=== PATIENT | female | born 1930 | race Caucasian/White ===

== ENCOUNTER 2016-05-24 09:45 | Outpatient (CLI) | payer MEDICARE, OTHER ==
[~2016-05-24] VITALS: Ht 165.1 cm; Wt 84.0 kg
[2016-05-24 09:53] VITALS: BP 165/80
[2016-05-24] MEDS ORDERED: MULT-1029 PO (10:00)
[2016-05-24] MEDS ORDERED: CALC1TAB29 PO (10:00)
[2016-05-24] MEDS ORDERED: BETA2500 PO (10:00)
[2016-05-24] MEDS ORDERED: TRIA1CAP4 PO (10:00)
[2016-05-24] MEDS ORDERED: VIT1CAPS44 PO (10:00)
[2016-05-24] MEDS ORDERED: LORA10TA7 PO (10:00)
[2016-05-24] MEDS ORDERED: PANT40TA3 PO (10:00)
[2016-05-24] MEDS ORDERED: LOVA10TA PO (10:00)
[2016-05-24 10:55] LABS: BASOPHILS % (AUTO) 0 % (0-10); EOSINOPHILS % (AUTO) 1 % (0-10); LYMPHOCYTES # (AUTO) 2.1 X 10^3 (1.0-4.0); LYMPHOCYTES % (AUTO) 28 % (12-44); MEAN CORPUSCULAR HEMOGLOBIN 31 PG (25-34); MEAN CORPUSCULAR HGB CONC 33 G/DL (32-36); MEAN CORPUSCULAR VOLUME 95 FL (80-99); MEAN PLATELET VOLUME 10.4 FL (7.4-10.4); MONOCYTES # (AUTO) 0.8 X 10^3 (0.0-1.0); MONOCYTES % (AUTO) 11 % (0-12); NEUTROPHILS # (AUTO) 4.5 X 10^3 (1.8-7.8); NEUTROPHILS % (AUTO) 60 % (42-75); PLATELET COUNT 283 10^3/uL (130-400); RED BLOOD COUNT 4.18 10^6/uL (4.35-5.85); RED CELL DISTRIBUTION WIDTH 12.8 % (10.0-14.5); WHITE BLOOD COUNT 7.4 10^3/uL (4.3-11.0)
[2016-05-24 11:17] LABS: CALCIUM 9.5 MG/DL (8.5-10.1); CREATININE SERUM 1.38 MG/DL (0.60-1.30); POTASSIUM 4.1 MMOL/L (3.6-5.0)
[2016-06-01] MEDS ORDERED: OXYC-471 PO (09:28)
[2016-06-01] MEDS ORDERED: IBUP-1780 PO (09:28)
[2016-06-01] MEDS ORDERED: DOCU100C37 PO (09:28)
== END 2016-05-24 10:30 | disposition home or self-care (01) ==
LOC: PREOP 09:45
PROVIDERS: ATTEND Obstetrics & Gynecology
DX: Z01.812 Encounter for preprocedural laboratory examination (principal); Z11.2 Encounter for screening for other bacterial diseases; C54.1 Malignant neoplasm of endometrium; D64.9 Anemia, unspecified
CPT/HCPCS: 36415; 80048; 85025; 86850; 86900; 86901; 87081; 93005

== ENCOUNTER 2016-05-31 10:45 | Day surgery (SDC) | payer MEDICARE, OTHER ==
[~2016-05-31] VITALS: Ht 165.1 cm; Wt 84.0 kg
[~2016-05-31 10:45] MED LIST: BETA2500 PO; CALC1TAB29 PO; D5 LR IV SOLUTION 1,000 ML IV SCH; LORA10TA7 PO; LOVA10TA PO; MEPERIDINE (DEMEROL) INJ 100 MG/ML IM PRN; MULT-1029 PO; ONDANSETRON 4 MG/2 ML (SDV) Z0FRAN IVP PRN; PANT40TA3 PO; PATIENT MAY USE OWN MEDS, ALL MC SCH; PROMETHAZINE INJ 25 MG/ML (PHENERGAN) AMP IM PRN; TRIA1CAP4 PO; VIT1CAPS44 PO; oxyCODONE/APAP 5/325MG (PERCOCET 5) TABLET PO PRN
[2016-05-31] MEDS ORDERED: ceFAZolin 1,000 MG (ANCEF) VIAL ONE (11:06)
[2016-05-31] MEDS ORDERED: NORMAL SALINE (BAXTER MINI) 50 ML IV ONE (11:06)
[2016-05-31] MEDS ORDERED: LACTATED RINGERS 1,000 ML IV PRN (11:09)
[2016-05-31] MEDS ORDERED: ceFAZolin 1 GM/NS 50 ML IVPB IV ONE ×2 (11:15)
[2016-05-31] MEDS ORDERED: FAMOTIDINE 20MG/2ML IV (PEPCID) IV ONE ×2 (11:15)
[2016-05-31] MEDS: LACTATED RINGERS 1,000 ML IV PRN ×2 (11:19→12:54)
[2016-05-31 11:34] VITALS: BP 149/71
[2016-05-31] MEDS ORDERED: LIDOCAINE PF 2% 10 ML (XYLOCAINE) AMP ONE (11:45)
[2016-05-31] MEDS ORDERED: ROCURONIUM 50 MG/5 ML (ZEMURON) VIAL IV ONE (11:45)
[2016-05-31] MEDS ORDERED: fentaNYL INJECTION 100 MCG/2 ML AMP ONE (11:45)
[2016-05-31] MEDS ORDERED: ONDANSETRON 4 MG/2 ML (SDV) Z0FRAN ONE (11:45)
[2016-05-31] MEDS ORDERED: proPOfol 200 MG/20 ML (DIPRIVAN) VIAL IV ONE (11:45)
[2016-05-31] MEDS ORDERED: LACTATED RINGERS 2,000 ML IV ONE (11:45)
[2016-05-31] MEDS ORDERED: SEVOFLURANE (ULTANE) 15 ML INHAL SOLN ONE ×2 (11:45→13:32)
[2016-05-31] MEDS ORDERED: DEXAMETHASONE PF 10 MG/ML (DECADRON) VIAL ONE (11:45)
[2016-05-31] MEDS ORDERED: KETOROLAC 15 MG/ML VIAL IVP SCH (12:00)
[2016-05-31] MEDS ORDERED: BUP/EPI 0.5% 1:200,000 (SENSORCAINE) 30 ML VIAL ONE (12:04)
[2016-05-31] MEDS ORDERED: BUP/EPI 0.25% 1:200,000 (MARCAINE) 30 ML VIAL ONE (12:05)
[2016-05-31] MEDS ORDERED: GLYCOPYRROLATE 0.2 MG/ML (ROBINUL) 2 ML VIAL ONE (13:33)
[2016-05-31] MEDS ORDERED: ESMOLOL 100 MG/10 ML (BREVIBLOC) VIAL ONE (13:33)
[2016-05-31] MEDS ORDERED: PHENYLEPHRINE 100 MCG/ML 10 ML (ANESTHESIA) SYR ONE (13:33)
[2016-05-31] MEDS ORDERED: NEOSTIGMINE (BLOXIVERZ ) 1 MG/1ML 10 ML VIAL ONE (13:33)
[2016-05-31] MEDS ORDERED: morphine INJ 10 MG/ML 1ML (SYR OR VIAL) ONE (14:00)
[2016-05-31] MEDS ORDERED: WATER (STERILE) FOR INJECTION 0 ML ONE (14:00)
[2016-05-31] MEDS ORDERED: KETOROLAC 30 MG/ML VIAL ONE (14:00)
[2016-05-31] MEDS ORDERED: ESTROGENS CONJ IV 25 MG/5 ML (PREMARIN) VIAL ONE (14:00)
[2016-05-31] MEDS ORDERED: MEPERIDINE (DEMEROL) INJ 50 MG/ML IVP PRN (14:15)
[2016-05-31] MEDS ORDERED: ONDANSETRON 4 MG/2 ML (SDV) Z0FRAN IVP PRN (14:15)
[2016-05-31] MEDS: morphine INJ 10 MG/ML 1ML (SYR OR VIAL) IVP PRN ×2 (14:19→14:30)
[2016-05-31 15:05] VITALS: BP 104/47
[2016-05-31 16:00] VITALS: BP 109/47
[2016-05-31 19:43] VITALS: BP 123/66
[2016-05-31] MEDS ORDERED: LOVASTATIN 10 MG TAB PO SCH (21:00)
[2016-06-01 01:15] VITALS: BP 123/72
[2016-06-01 05:35] VITALS: BP 111/63
[2016-06-01] MEDS ORDERED: PANTOPRAZOLE 40 MG (PROTONIX) TAB PO SCH (07:00)
--- NOTE | 2016-06-01 08:05 | Anesthesia-General Post-Op ---
General Patient Condition Mental Status/LOC: Same as Preop Cardiovascular: Satisfactory Nausea/Vomiting: Absent Respiratory: Satisfactory Pain: Controlled Complications: Absent Post Op Complications Complications None Follow Up Care/Instructions Patient Instructions None needed. Anesthesia/Patient Condition Patient Condition Patient is doing well, no complaints, stable vital signs, no apparent adverse anesthesia problems. No complications reported per nursing. GODWIN FRANCIS CRNA Jun 01, 2016 08:04
[2016-06-01 08:15] VITALS: BP 103/56
[2016-06-01] MEDS ORDERED: TRIAMT/HCTZ 37.5-25 MG TAB PO SCH (09:00)
[2016-06-01] MEDS ORDERED: DOCUSATE SODIUM 100 MG (COLACE) CAP PO SCH (09:00)
--- NOTE | 2016-06-01 09:26 | Progress Note-Standard ---
Standard Progress Note Progress Notes/Assess & Plan Progress/Assessment & Plan this patient is without complaint. She is ambulating, voiding, tolerating by mouth well, has good pain control, denies chest pain, denies shortness of breath , denies nausea vomiting, denies headache, is requesting discharge home. Vital Signs Date Time Temp Pulse Resp B/P Pulse Ox O2 Delivery O2 Flow Rate FiO2 06/01/16 08:15 98.9 81 18 103/56 94 Room Air 06/01/16 08:15 94 06/01/16 05:35 98.6 73 18 111/63 96 Room Air 06/01/16 01:15 97.6 89 18 123/72 95 NIV/CPAP 3.00 05/31/16 19:45 98 Nasal Cannula 3.00 05/31/16 19:43 97.9 97 18 123/66 98 Nasal Cannula 3.00 05/31/16 16:00 98.0 77 18 109/47 96 Nasal Cannula 3.00 05/31/16 15:05 97.4 71 16 104/47 94 Nasal Cannula 3.00 05/31/16 11:34 97.1 89 16 149/71 96 Room Air I & O 06/01/16 07:00 Intake Total 1260 ml Output Total 1475 ml Balance -215 ml Vital signs are stable. Patient is afebrile. The abdomen is benign. Ashley show no clubbing or cyanosis. There is no Homans sign. assessment and plan postoperative day number 1 doing well. Plan is for discharge home with follow-up in clinic. Final Diagnosis endometrial cancer ISABELL GAMA MD Jun 01, 2016 9:26 am
[2016-06-01] MEDS ORDERED: OXYC-471 PO (09:28)
[2016-06-01] MEDS ORDERED: IBUP-1780 PO (09:28)
[2016-06-01] MEDS ORDERED: DOCU100C37 PO (09:28)
--- NOTE | 2016-06-01 09:30 | Discharge Instructions ---
Discharge Instructions Discharge Medications New, Converted or Re-Newed RX: RX on Chart Patient Instructions Patient Instructions: as directed Return to The Hospital For: as directed Activity & Diet Discharge Diet: No Restrictions Activity as Tolerated: No Orders-Post D/C & Referrals Follow Up Appt: return to clinic next Friday, June 05, 2016 at 930 a.m. for staple removal Call to make follow up appt. for patient in 4 weeks. Activity: Rest for 24 hours, than as tolerated. Wound Care: May remove Band-Aid tomorrow. Replace as desired. Keep incisions clean and dry. Wash daily with soap and water. Please call in RX to patient pharmacy. Diet: As tolerated-Clear Liquids only if nauseated. Tomorrow, may shower or tub bathe as desired. No driving for 24 hours, no alcoholic beverages for 24 hours, and nothing per vagina (no tampons, douching, or intercourse) for 8 weeks. Patient to return to the clinic as soon as possible for: Temperature greater than 101F, Severe Pain, Foul discharge from incision or vagina, Excessive Bleeding (more than a period). ISABELL GAMA MD Jun 01, 2016 9:30 am
[2016-06-01 10:40] VITALS: BP 103/56
[2016-06-01] MEDS ORDERED: IBUPROFEN 800 MG (MOTRIN) TAB PO SCH (12:00)
--- NOTE | 2016-06-02 12:49 | OPERATIVE REPORT ---
PROCEDURE PHYSICIAN: ISABELL GAMA DATE OF PROCEDURE: 05/31/2016 DATE OF DICTATION: 05/31/2016 PREOPERATIVE DIAGNOSIS: Endometrial cancer on endometrial biopsy. POSTOPERATIVE DIAGNOSES: 1. Endometrial cancer on endometrial biopsy. 2. Abdominal pelvic adhesions and omental nodule. OPERATIVE PROCEDURE: 1. Total laparoscopic hysterectomy with bilateral salpingo-oophorectomy. 2. Laparoscopic adhesiolysis. 3. Laparoscopic omental nodule excision. 4. Pelvic washings. OPERATIVE DESCRIPTION: With the patient in the supine position, under satisfactory general anesthesia, she was repositioned in the dorsal lithotomy position in the [facility] and prepped and draped in usual fashion for abdominal and vaginal surgery. A weighted speculum placed in posterior fornix of vagina. Cervix exposed and grasped anteriorly with single-tooth tenaculum. The uterus sounded to 7 cm with uterine sound. The cervix was then serially dilated with Jozef dilators to accommodate a REHAN 2 manipulator, which is placed using a 6 mm x 6 cm colpotomy ring and a 6 mm x 6 cm uterine probe and a 30 mm colpotomy ring. Sutures of number 1 Vicryl were placed at 3 and 9 o'clock positions to affix the cervix to the manipulator. Barron cath was placed in the urinary bladder and began draining clear yellow urine. The patient brought in low dorsal lithotomy position. A 12 mm incision was made just superior to the umbilicus and a Veress needle was placed through that incision, correct placement confirmed with the water drop test. The abdomen was insufflated with 2.4 liters of carbon dioxide and the Veress needle was removed and a 12 mm Optiview laparoscopic port placed. The abdominal wall transilluminated and 8 mm ports were placed 9 cm lateral to the umbilicus on each side. All 3 port sites were infiltrated with 0.25% Marcaine with epinephrine prior to incision. Pelvic washings were now obtained using a suction water reuse program manager in the left port with the camera through the umbilical port. The patient was in Trendelenburg and the bowel was spilled up out of the pelvis. The pelvis washings were obtained irrigating both the uterus as well as the entire pelvis, both ovaries and the pelvic brim on both sides. Those washings were captured and sent to pathology for permanent section. The da Cholo column was now advanced onto the patient and docked and then operative instruments placed right and left lateral ports and I retired to the da Cholo console. At the console, using the vessel sealer on the right and bipolar fenestrated grasper on the left, attention was first turned to some extensive mostly omental adhesions to the right lower quadrant of the abdominal wall. This is likely due to the patient's previous appendectomy. These adhesions were mostly omental and fat and filmy. The bowel was fairly well away from the attachment. The attachment of the adhesions were clamped, cauterized, and divided using the vessel sealer up against the abdominal wall with the tissue eventually freed; there was nodule of about 1 cm noted in the midst of this area. It was grasped and elevated using the vessel sealer it was dissected free and put in an Endobag and sent to pathology separately labeled omental nodule biopsy. The attention was then turned to the pelvis. The pelvis had been examined prior to initiating adhesiolysis. The ovaries were atretic. The fallopian tubes were normal. The uterus was normal. There was no overt carcinomatosis. There were no nodules consistent with any obvious omental spread of the endometrial cancer. There were no lymph nodes notable through the peritoneum on either side of the pelvis or in the cul-de-sac. The decision was made to go ahead with a simple hysterectomy with bilateral salpingo-oophorectomy in addition to the other procedures that had been performed. The right tube and ovary were grasped and elevated. The vessel sealer was used to clamped, cauterized, and divide the IP ligament and then the mesovarian, and then the round ligament, broad ligament and finally the cardinal ligament. The same procedure was performed on the left with the same results allowing for removal of the tubes and ovaries with the uterus eventually. The anterior lower uterine segment peritoneum was divided after replacing the vessel sealer with a monopolar shear. The bladder was carefully dissected down off of the lower uterine segment, exposing the colpotomy ring through the vagina. The colpotomy incision then made at the 12 o'clock position on the colpotomy ring and that incision was continued circumferentially clockwise to the 2 o'clock position then counterclockwise entirely around the cervix until the colpotomy ring was fully exposed. At this point the Endobag had been placed in the abdominal cavity and the nodule had been placed in it; that string was looped around the uterus so that when the uterus was removed the string for the bag came out and then bag was extracted through the vagina as well. All that tissue was sent to pathology, labeled appropriately. The operative instruments now were changed to a Cobra grasper on the left and a barbara cut needle boat driver on the right using V-Loc barbed sutures. The vaginal cuff was closed starting first from the right angle and continuing to just past the midpoint of the cuff and then from the left angle to the midpoint of the cuff. The peritoneum was brought back down onto the cuff with the last 2 stitches on each side. The suture was started and then continued laterally on each side, to ensure inclusion of the terminus of the uterine vessels on this side respectively. Both ureters were identified during, and throughout the process of the procedure and were seen to peristalt. They were examined again now and found to be peristalsing and were normal in appearance and caliber. The pelvis was now irrigated and examined for hemostasis. With that being complete, with no abnormal pathology, the procedure was terminated. The operative instruments were removed as were the ports. The abdomen was evacuated of insufflating gas in the process of removing the port. The ports had been removed under direct vision. No bleeding noted at any of the port sites. Sponge and needle counts were correct on completion of procedure. Estimated blood loss was minimal. The patient tolerated the procedure well and was transferred to the recovery room in stable condition after being uneventfully awakened from her general anesthesia. The patient had good urine output throughout the procedure, tolerated well. Job ID: [id number] Dictated Date: 05/31/2016 13:56:38 It Senior Analyst Date: 06/02/2016 12:34:52 / greta
== END 2016-06-01 10:40 | disposition home or self-care (01) ==
LOC: SDC 10:45 → WS 15:05 → SDC 06-01 10:40
PROVIDERS: ATTEND Obstetrics & Gynecology
DX: C54.1 Malignant neoplasm of endometrium (principal); N73.6 Female pelvic peritoneal adhesions (postinfective); K66.9 Disorder of peritoneum, unspecified
CPT/HCPCS: 94664

== ENCOUNTER 2016-06-13 08:39 | Outpatient (RCR) | payer MEDICARE, OTHER ==
[~2016-06-13 08:39] MED LIST changes: -D5 LR IV SOLUTION 1,000 ML IV SCH; +DOCU100C37 PO; +IBUP-1780 PO; -MEPERIDINE (DEMEROL) INJ 100 MG/ML IM PRN; -ONDANSETRON 4 MG/2 ML (SDV) Z0FRAN IVP PRN; +OXYC-471 PO; -PATIENT MAY USE OWN MEDS, ALL MC SCH; -PROMETHAZINE INJ 25 MG/ML (PHENERGAN) AMP IM PRN; -oxyCODONE/APAP 5/325MG (PERCOCET 5) TABLET PO PRN
[2016-06-13 09:09] LABS: BASOPHILS % (AUTO) 0 % (0-10); EOSINOPHILS # (AUTO) 0.1 10^3/uL (0.0-0.3); EOSINOPHILS % (AUTO) 1 % (0-10); LYMPHOCYTES # (AUTO) 1.9 X 10^3 (1.0-4.0); LYMPHOCYTES % (AUTO) 13 % (12-44); MEAN CORPUSCULAR HEMOGLOBIN 31 PG (25-34); MEAN CORPUSCULAR HGB CONC 33 G/DL (32-36); MEAN CORPUSCULAR VOLUME 93 FL (80-99); MEAN PLATELET VOLUME 9.9 FL (7.4-10.4); MONOCYTES # (AUTO) 1.7 X 10^3 (0.0-1.0); MONOCYTES % (AUTO) 11 % (0-12); NEUTROPHILS # (AUTO) 10.9 X 10^3 (1.8-7.8); NEUTROPHILS % (AUTO) 74 % (42-75); PLATELET COUNT 334 10^3/uL (130-400); RED BLOOD COUNT 3.76 10^6/uL (4.35-5.85); RED CELL DISTRIBUTION WIDTH 12.5 % (10.0-14.5); WHITE BLOOD COUNT 14.6 10^3/uL (4.3-11.0)
[2016-06-13 09:43] LABS: BILIRUBIN,TOTAL 0.6 MG/DL (0.1-1.0); CALCIUM 9.4 MG/DL (8.5-10.1); CREATININE SERUM 1.59 MG/DL (0.60-1.30); POTASSIUM 5.2 MMOL/L (3.6-5.0); TOTAL PROTEIN 7.4 G/DL (6.4-8.2)
[2016-06-13 09:51] LABS: BILIRUBIN,URINE NEGATIVE (NEGATIVE); KETONES,URINE NEGATIVE (NEGATIVE); LEUKOCYTE ESTERASE ,URINE 3+ (NEGATIVE); NITRITE,URINE NEGATIVE (NEGATIVE); PH,URINE 7 (5-9); PROTEIN,URINE 2+ (NEGATIVE); UROBILINOGEN,URINE NORMAL (NORMAL)
[2016-06-13 10:18] LABS: WBC,URINE 50-100 /HPF
== END 2016-09-11 | disposition home or self-care (01) ==
LOC: ONC 08:39
PROVIDERS: ATTEND Internal Medicine Hematology & Oncology
DX: C54.1 Malignant neoplasm of endometrium (principal); R30.0 Dysuria; N28.9 Disorder of kidney and ureter, unspecified; I10 Essential (primary) hypertension; K21.9 Gastro-esophageal reflux disease without esophagitis; E78.5 Hyperlipidemia, unspecified; R82.99 Other abnormal findings in urine; M19.90 Unspecified osteoarthritis, unspecified site; E66.9 Obesity, unspecified; Z68.31 Body mass index [BMI] 31.0-31.9, adult; Z90.710 Acquired absence of both cervix and uterus; Z79.899 Other long term (current) drug therapy
CPT/HCPCS: 36415; 80053; 81000; 85025; 87088; 99214

== ENCOUNTER 2016-11-07 09:00 | Outpatient (RCR) | payer MEDICARE, OTHER ==
[2016-11-07 09:27] LABS: BASOPHILS % (AUTO) 1 % (0-10); EOSINOPHILS # (AUTO) 0.1 10^3/uL (0.0-0.3); EOSINOPHILS % (AUTO) 2 % (0-10); LYMPHOCYTES % (AUTO) 29 % (12-44); MEAN CORPUSCULAR HEMOGLOBIN 31 PG (25-34); MEAN CORPUSCULAR HGB CONC 33 G/DL (32-36); MEAN CORPUSCULAR VOLUME 94 FL (80-99); MONOCYTES # (AUTO) 0.6 X 10^3 (0.0-1.0); MONOCYTES % (AUTO) 9 % (0-12); NEUTROPHILS # (AUTO) 4.1 X 10^3 (1.8-7.8); NEUTROPHILS % (AUTO) 60 % (42-75); PLATELET COUNT 282 10^3/uL (130-400); RED BLOOD COUNT 3.97 10^6/uL (4.35-5.85); RED CELL DISTRIBUTION WIDTH 12.3 % (10.0-14.5); WHITE BLOOD COUNT 6.8 10^3/uL (4.3-11.0)
[2016-11-07 09:41] LABS: ALBUMIN 4.1 GM/DL (3.2-4.5); BILIRUBIN,TOTAL 0.7 MG/DL (0.1-1.0); CALCIUM 9.2 MG/DL (8.5-10.1); CREATININE SERUM 1.43 MG/DL (0.60-1.30); ICTERUS 0.7 (-100-1.9); POTASSIUM 3.9 MMOL/L (3.6-5.0); TOTAL PROTEIN 7.6 GM/DL (6.4-8.2)
[2016-11-07 10:30] LABS: BILIRUBIN,URINE NEGATIVE (NEGATIVE); KETONES,URINE NEGATIVE (NEGATIVE); LEUKOCYTE ESTERASE ,URINE 1+ (NEGATIVE); NITRITE,URINE NEGATIVE (NEGATIVE); PH,URINE 8 (5-9); PROTEIN,URINE NEGATIVE (NEGATIVE); UROBILINOGEN,URINE NORMAL (NORMAL)
[2016-11-07 10:40] LABS: WBC,URINE RARE /HPF
== END 2017-02-05 | disposition home or self-care (01) ==
LOC: ONC 09:00
PROVIDERS: ATTEND Internal Medicine Hematology & Oncology
DX: C54.1 Malignant neoplasm of endometrium; R30.0 Dysuria; Z79.899 Other long term (current) drug therapy; E78.5 Hyperlipidemia, unspecified; N28.9 Disorder of kidney and ureter, unspecified; M19.90 Unspecified osteoarthritis, unspecified site; E66.9 Obesity, unspecified; K21.9 Gastro-esophageal reflux disease without esophagitis; Z68.32 Body mass index [BMI] 32.0-32.9, adult; Z90.710 Acquired absence of both cervix and uterus; I10 Essential (primary) hypertension
CPT/HCPCS: 36415; 80053; 81000; 82378; 85025; 86304; 99213

== ENCOUNTER 2017-04-04 09:37 | Outpatient (RCR) | payer MEDICARE, OTHER ==
[2017-04-04 09:46] LABS: BASOPHILS % (AUTO) 0 % (0-10); EOSINOPHILS # (AUTO) 0.1 10^3/uL (0.0-0.3); EOSINOPHILS % (AUTO) 1 % (0-10); HEMATOCRIT 37 % (35-52); HEMOGLOBIN 12.3 G/DL (11.5-16.0); LYMPHOCYTES # (AUTO) 2.2 X 10^3 (1.0-4.0); LYMPHOCYTES % (AUTO) 30 % (12-44); MEAN CORPUSCULAR HEMOGLOBIN 32 PG (25-34); MEAN CORPUSCULAR HGB CONC 34 G/DL (32-36); MEAN CORPUSCULAR VOLUME 94 FL (80-99); MEAN PLATELET VOLUME 10.1 FL (7.4-10.4); MONOCYTES # (AUTO) 0.7 X 10^3 (0.0-1.0); MONOCYTES % (AUTO) 10 % (0-12); NEUTROPHILS # (AUTO) 4.3 X 10^3 (1.8-7.8); NEUTROPHILS % (AUTO) 59 % (42-75); PLATELET COUNT 265 10^3/uL (130-400); RED BLOOD COUNT 3.89 10^6/uL (4.35-5.85); RED CELL DISTRIBUTION WIDTH 12.5 % (10.0-14.5); WHITE BLOOD COUNT 7.2 10^3/uL (4.3-11.0)
[2017-04-04 10:13] LABS: ALBUMIN 4.2 GM/DL (3.2-4.5); BILIRUBIN,TOTAL 0.6 MG/DL (0.1-1.0); CALCIUM 9.2 MG/DL (8.5-10.1); CREATININE SERUM 1.31 MG/DL (0.60-1.30); POTASSIUM 4.1 MMOL/L (3.6-5.0); TOTAL PROTEIN 7.9 GM/DL (6.4-8.2)
== END 2017-07-03 | disposition home or self-care (01) ==
LOC: ONC 09:37
PROVIDERS: ATTEND Internal Medicine Hematology & Oncology
DX: C54.1 Malignant neoplasm of endometrium (principal); R30.0 Dysuria; N28.9 Disorder of kidney and ureter, unspecified; I10 Essential (primary) hypertension; K21.9 Gastro-esophageal reflux disease without esophagitis; E78.5 Hyperlipidemia, unspecified; M19.91 Primary osteoarthritis, unspecified site; E66.9 Obesity, unspecified; Z68.32 Body mass index [BMI] 32.0-32.9, adult; Z90.710 Acquired absence of both cervix and uterus; Z79.899 Other long term (current) drug therapy
CPT/HCPCS: 36415; 80053; 85025; 86304; 99213

== ENCOUNTER 2017-09-04 08:45 | Outpatient (RCR) | payer MEDICARE, OTHER ==
[2017-09-04 09:02] LABS: BASOPHILS % (AUTO) 0 % (0-10); EOSINOPHILS # (AUTO) 0.1 10^3/uL (0.0-0.3); EOSINOPHILS % (AUTO) 1 % (0-10); HEMATOCRIT 36 % (35-52); HEMOGLOBIN 11.9 G/DL (11.5-16.0); LYMPHOCYTES # (AUTO) 2.2 X 10^3 (1.0-4.0); LYMPHOCYTES % (AUTO) 31 % (12-44); MEAN CORPUSCULAR HEMOGLOBIN 31 PG (25-34); MEAN CORPUSCULAR HGB CONC 33 G/DL (32-36); MEAN CORPUSCULAR VOLUME 95 FL (80-99); MEAN PLATELET VOLUME 9.7 FL (7.4-10.4); MONOCYTES # (AUTO) 0.7 X 10^3 (0.0-1.0); MONOCYTES % (AUTO) 10 % (0-12); NEUTROPHILS % (AUTO) 57 % (42-75); PLATELET COUNT 279 10^3/uL (130-400); RED BLOOD COUNT 3.81 10^6/uL (4.35-5.85); RED CELL DISTRIBUTION WIDTH 12.7 % (10.0-14.5); WHITE BLOOD COUNT 6.9 10^3/uL (4.3-11.0)
[2017-09-04 09:19] LABS: ALBUMIN 4.2 GM/DL (3.2-4.5); BILIRUBIN,TOTAL 0.7 MG/DL (0.1-1.0); CALCIUM 9.3 MG/DL (8.5-10.1); CREATININE SERUM 1.35 MG/DL (0.60-1.30); POTASSIUM 4.6 MMOL/L (3.6-5.0); TOTAL PROTEIN 7.3 GM/DL (6.4-8.2)
== END 2017-12-03 | disposition home or self-care (01) ==
LOC: ONC 08:45
PROVIDERS: ATTEND Internal Medicine Hematology & Oncology
DX: C54.1 Malignant neoplasm of endometrium (principal); R30.0 Dysuria; N28.9 Disorder of kidney and ureter, unspecified; I10 Essential (primary) hypertension; K21.9 Gastro-esophageal reflux disease without esophagitis; E78.5 Hyperlipidemia, unspecified; M19.91 Primary osteoarthritis, unspecified site; E66.9 Obesity, unspecified; Z68.32 Body mass index [BMI] 32.0-32.9, adult; Z90.710 Acquired absence of both cervix and uterus; Z79.899 Other long term (current) drug therapy
CPT/HCPCS: 36415; 80053; 85025; 99213

== ENCOUNTER 2018-03-11 08:09 | Outpatient (RCR) | payer MEDICARE, OTHER ==
[2018-03-11 08:21] LABS: BASOPHILS % (AUTO) 1 % (0-10); EOSINOPHILS # (AUTO) 0.1 10^3/uL (0.0-0.3); EOSINOPHILS % (AUTO) 2 % (0-10); HEMATOCRIT 37 % (35-52); HEMOGLOBIN 11.9 G/DL (11.5-16.0); LYMPHOCYTES # (AUTO) 2.1 X 10^3 (1.0-4.0); LYMPHOCYTES % (AUTO) 33 % (12-44); MEAN CORPUSCULAR HEMOGLOBIN 31 PG (25-34); MEAN CORPUSCULAR HGB CONC 33 G/DL (32-36); MEAN CORPUSCULAR VOLUME 96 FL (80-99); MEAN PLATELET VOLUME 9.8 FL (7.4-10.4); MONOCYTES # (AUTO) 0.7 X 10^3 (0.0-1.0); MONOCYTES % (AUTO) 11 % (0-12); NEUTROPHILS # (AUTO) 3.3 X 10^3 (1.8-7.8); NEUTROPHILS % (AUTO) 54 % (42-75); PLATELET COUNT 280 10^3/uL (130-400); RED BLOOD COUNT 3.82 10^6/uL (4.35-5.85); RED CELL DISTRIBUTION WIDTH 12.8 % (10.0-14.5); WHITE BLOOD COUNT 6.2 10^3/uL (4.3-11.0)
[2018-03-11 08:46] LABS: ALBUMIN 4.2 GM/DL (3.2-4.5); BILIRUBIN,TOTAL 0.6 MG/DL (0.1-1.0); CALCIUM 9.8 MG/DL (8.5-10.1); CREATININE SERUM 1.28 MG/DL (0.60-1.30); POTASSIUM 4.1 MMOL/L (3.6-5.0); TOTAL PROTEIN 7.5 GM/DL (6.4-8.2)
== END 2018-06-09 | disposition home or self-care (01) ==
LOC: ONC 08:09
PROVIDERS: ATTEND Internal Medicine Hematology & Oncology
DX: C54.1 Malignant neoplasm of endometrium (principal); R30.0 Dysuria; N28.9 Disorder of kidney and ureter, unspecified; I10 Essential (primary) hypertension; K21.9 Gastro-esophageal reflux disease without esophagitis; E78.5 Hyperlipidemia, unspecified; M19.91 Primary osteoarthritis, unspecified site; E66.9 Obesity, unspecified; Z68.32 Body mass index [BMI] 32.0-32.9, adult; Z90.710 Acquired absence of both cervix and uterus; Z79.899 Other long term (current) drug therapy
CPT/HCPCS: 36415; 80053; 85025; 99213

== ENCOUNTER 2018-09-02 08:34 | Outpatient (RCR) | payer MEDICARE, OTHER ==
[2018-09-02 08:57] LABS: BASOPHILS % (AUTO) 1 % (0-10); EOSINOPHILS # (AUTO) 0.1 10^3/uL (0.0-0.3); EOSINOPHILS % (AUTO) 2 % (0-10); HEMATOCRIT 37 % (35-52); HEMOGLOBIN 11.8 G/DL (11.5-16.0); LYMPHOCYTES # (AUTO) 2.4 X 10^3 (1.0-4.0); LYMPHOCYTES % (AUTO) 39 % (12-44); MEAN CORPUSCULAR HEMOGLOBIN 31 PG (25-34); MEAN CORPUSCULAR HGB CONC 32 G/DL (32-36); MEAN CORPUSCULAR VOLUME 96 FL (80-99); MEAN PLATELET VOLUME 10.2 FL (7.4-10.4); MONOCYTES # (AUTO) 0.6 X 10^3 (0.0-1.0); MONOCYTES % (AUTO) 10 % (0-12); NEUTROPHILS # (AUTO) 2.9 X 10^3 (1.8-7.8); NEUTROPHILS % (AUTO) 49 % (42-75); PLATELET COUNT 283 10^3/uL (130-400); RED CELL DISTRIBUTION WIDTH 13.2 % (10.0-14.5)
[2018-09-02 09:20] LABS: ALBUMIN 4.3 GM/DL (3.2-4.5); BILIRUBIN,TOTAL 0.7 MG/DL (0.1-1.0); CALCIUM 9.6 MG/DL (8.5-10.1); CREATININE SERUM 1.4 MG/DL (0.60-1.30); POTASSIUM 4.4 MMOL/L (3.6-5.0); TOTAL PROTEIN 7.5 GM/DL (6.4-8.2)
== END 2018-12-01 | disposition home or self-care (01) ==
LOC: ONC 08:34
PROVIDERS: ATTEND Internal Medicine Hematology & Oncology
DX: C54.1 Malignant neoplasm of endometrium (principal); R30.0 Dysuria; N28.9 Disorder of kidney and ureter, unspecified; I10 Essential (primary) hypertension; K21.9 Gastro-esophageal reflux disease without esophagitis; E78.5 Hyperlipidemia, unspecified; M19.91 Primary osteoarthritis, unspecified site; E66.9 Obesity, unspecified; Z68.32 Body mass index [BMI] 32.0-32.9, adult; Z90.710 Acquired absence of both cervix and uterus; Z79.899 Other long term (current) drug therapy
CPT/HCPCS: 36415; 80053; 85025; 99213

== ENCOUNTER 2019-03-03 08:36 | Outpatient (RCR) | payer MEDICARE, OTHER ==
[~2019-03-03 08:36] MED LIST changes: -BETA2500 PO; +[UNRECOGNIZED DRUG - CODE] PO
[2019-03-03 09:00] LABS: BASOPHILS % (AUTO) 0 % (0-10); EOSINOPHILS # (AUTO) 0.1 10^3/uL (0.0-0.3); EOSINOPHILS % (AUTO) 2 % (0-10); HEMATOCRIT 40 % (35-52); HEMOGLOBIN 12.8 G/DL (11.5-16.0); LYMPHOCYTES # (AUTO) 1.5 X 10^3 (1.0-4.0); LYMPHOCYTES % (AUTO) 35 % (12-44); MEAN CORPUSCULAR HEMOGLOBIN 30 PG (25-34); MEAN CORPUSCULAR HGB CONC 32 G/DL (32-36); MEAN CORPUSCULAR VOLUME 95 FL (80-99); MONOCYTES # (AUTO) 0.5 X 10^3 (0.0-1.0); MONOCYTES % (AUTO) 12 % (0-12); NEUTROPHILS # (AUTO) 2.2 X 10^3 (1.8-7.8); NEUTROPHILS % (AUTO) 50 % (42-75); PLATELET COUNT 204 10^3/uL (130-400); RED CELL DISTRIBUTION WIDTH 12.8 % (10.0-14.5); WHITE BLOOD COUNT 4.4 10^3/uL (4.3-11.0)
[2019-03-03 09:22] LABS: ALBUMIN 4.1 GM/DL (3.2-4.5); BILIRUBIN,TOTAL 0.5 MG/DL (0.1-1.0); CALCIUM 9.4 MG/DL (8.5-10.1); CREATININE SERUM 1.21 MG/DL (0.60-1.30); POTASSIUM 4.2 MMOL/L (3.6-5.0); TOTAL PROTEIN 7.3 GM/DL (6.4-8.2)
== END 2019-06-01 | disposition home or self-care (01) ==
LOC: ONC 08:36
PROVIDERS: ATTEND Internal Medicine Hematology & Oncology
DX: C54.1 Malignant neoplasm of endometrium (principal); I12.9 Hypertensive chronic kidney disease with stage 1 through stage 4 chronic kidney disease, or unspecified chronic kidney disease; N18.9 Chronic kidney disease, unspecified; E78.5 Hyperlipidemia, unspecified; M19.90 Unspecified osteoarthritis, unspecified site; E66.9 Obesity, unspecified; Z87.19 Personal history of other diseases of the digestive system; Z79.899 Other long term (current) drug therapy; Z86.69 Personal history of other diseases of the nervous system and sense organs; Z85.828 Personal history of other malignant neoplasm of skin
CPT/HCPCS: 36415; 80053; 85025; 99213

== ENCOUNTER → 2019-10-04 | Outpatient (CLI) | payer MEDICARE, OTHER ==
[2019-10-04 09:10] LABS: BASOPHILS % (AUTO) 0 % (0-10); EOSINOPHILS # (AUTO) 0.1 10^3/uL (0.0-0.3); EOSINOPHILS % (AUTO) 2 % (0-10); HEMATOCRIT 41 % (35-52); HEMOGLOBIN 13.3 G/DL (11.5-16.0); LYMPHOCYTES # (AUTO) 2.2 X 10^3 (1.0-4.0); LYMPHOCYTES % (AUTO) 34 % (12-44); MEAN CORPUSCULAR HEMOGLOBIN 31 PG (25-34); MEAN CORPUSCULAR HGB CONC 33 G/DL (32-36); MEAN CORPUSCULAR VOLUME 95 FL (80-99); MEAN PLATELET VOLUME 10.7 FL (7.4-10.4); MONOCYTES # (AUTO) 0.6 X 10^3 (0.0-1.0); MONOCYTES % (AUTO) 9 % (0-12); NEUTROPHILS # (AUTO) 3.7 X 10^3 (1.8-7.8); NEUTROPHILS % (AUTO) 56 % (42-75); PLATELET COUNT 232 10^3/uL (130-400); RED CELL DISTRIBUTION WIDTH 13.4 % (10.0-14.5); WHITE BLOOD COUNT 6.7 10^3/uL (4.3-11.0)
[2019-10-04 09:31] LABS: ALBUMIN 4.2 GM/DL (3.2-4.5); BILIRUBIN,TOTAL 0.6 MG/DL (0.1-1.0); CALCIUM 9.2 MG/DL (8.5-10.1); CREATININE SERUM 1.16 MG/DL (0.60-1.30); POTASSIUM 4.2 MMOL/L (3.6-5.0); TOTAL PROTEIN 7.5 GM/DL (6.4-8.2)
== END ==
LOC: EDSTATUS 08:56 → ONC 08:57
PROVIDERS: ATTEND Internal Medicine Hematology & Oncology
DX: C54.1 Malignant neoplasm of endometrium (principal); I12.9 Hypertensive chronic kidney disease with stage 1 through stage 4 chronic kidney disease, or unspecified chronic kidney disease; N18.9 Chronic kidney disease, unspecified; E78.5 Hyperlipidemia, unspecified; M19.90 Unspecified osteoarthritis, unspecified site; E66.9 Obesity, unspecified; Z87.19 Personal history of other diseases of the digestive system; Z79.899 Other long term (current) drug therapy; Z86.69 Personal history of other diseases of the nervous system and sense organs; Z85.828 Personal history of other malignant neoplasm of skin; M19.91 Primary osteoarthritis, unspecified site; Z68.32 Body mass index [BMI] 32.0-32.9, adult; Z90.710 Acquired absence of both cervix and uterus
CPT/HCPCS: 80053; 85025; 99213